=== PATIENT | male | born 1940 | race Caucasian/White ===

== ENCOUNTER 2024-05-16 20:13 | Inpatient (IN) | payer OTHER, BC ==
[2024-05-16] MEDS ORDERED: ACETAMINOPHEN INJECTION 100 ML IVPB ONE (21:29)
[2024-05-16] MEDS: ACETAMINOPHEN 1000 MG/100 ML BAG IVPB ONE (21:36)
[2024-05-16] MEDS: SODIUM CHLORIDE 0.9% 500 ML INFUS.BAG IV ONE ×2 (21:36→22:47)
[2024-05-16 21:38] LABS: BASO % 0.7 % (0-2.0); HEMATOCRIT 45.8 % (35.4-49); HEMOGLOBIN 15.3 GM/dL (11.7-16.9); LYMPH % 6.1 % (8-40); MCH 29.4 pg (25.7-33.7); MCHC 33.4 g/dl (32.0-35.9); MEAN PLT VOLUME 8.7 fl (7.5-11.1); NEUT % 86.2 % (42.8-82.8); PLATELET COUNT 214 10^3/uL (134-434); RBC 5.21 M/mm3 (4.00-5.60); RDW 14.8 % (11.9-15.9); WHITE BLOOD COUNT 4.7 K/mm3 (4.0-10.0)
[2024-05-16 21:47] LABS: INR 1.08 (0.83-1.09); PROTHROMBIN TIME (PATIENT) 12.4 SEC (9.7-13.0)
[2024-05-16 21:56] LABS: CHLORIDE 98 mmol/L (98-107); POTASSIUM 4.1 mmol/L (3.5-5.1); SODIUM 132 mmol/L (136-145)
[2024-05-16 21:58] LABS: ALBUMIN 3.2 g/dl (3.4-5.0); ANION GAP 9 mmol/L (4-13); BLOOD UREA NITROGEN 23.4 mg/dL (7-18); CALCIUM 9.3 mg/dL (8.5-10.1); CO2 25 mmol/L (21-32); GLUCOSE,RANDOM 245 mg/dL (74-106); MAGNESIUM 1.8 mg/dL (1.8-2.4)
[2024-05-16 22:01] LABS: PHOSPHOROUS 2.6 mg/dL (2.5-4.9)
[2024-05-16 22:02] LABS: CREATININE 1.1 mg/dL (0.55-1.3); SGOT/AST 67 U/L (15-37); SGPT/ALT 53 U/L (13-61)
[2024-05-16 22:03] LABS: BILIRUBIN,TOTAL 0.4 mg/dL (0.2-1)
[2024-05-16 22:04] LABS: ALK PHOS 98 U/L (45-117); LACTIC ACID 2.5 mmol/L (0.4-2.0); TOT PROT 6.4 g/dl (6.4-8.2)
[2024-05-17 01:21] LABS: EPI CELLS 12 /uL (0-25.1); HYALINE CASTS 2 /uL (0-3.1); PH,URINE 5.5 (5.0-8.0); URINE APPEARANCE CLEAR; URINE BACTERIA 7 /uL (0-1359); URINE BILIRUBIN NEGATIVE (NEGATIVE); URINE COLOR YELLOW; URINE GLUCOSE (UA) TRACE (NEGATIVE); URINE KETONE NEGATIVE (NEGATIVE); URINE LEUK ESTERASE NEGATIVE (NEGATIVE); URINE NITRITE NEGATIVE (NEGATIVE); URINE PROTEIN 1+ (NEGATIVE); URINE RBC 16 /uL (0-23.9); URINE WBC 23 /uL (0-25.8)
[2024-05-17 02:10] LABS: LACTIC ACID 2.2 mmol/L (0.4-2.0)
[2024-05-17] MEDS: PANTOPRAZOLE 40 MG TABLET PO SCH (03:42)
[2024-05-17] MEDS ORDERED: MAGNESIUM SULFATE IN WATER 2 GM/50 ML IVPB IVPB ONE (04:12)
[2024-05-17] MEDS: MAGNESIUM SULF 50% (8.12 MEQ/2 ML-1 GM VIAL) IVPB ONE (04:22)
[2024-05-17] MEDS: D5-1/2NS+10 MEQ KCL - 10 MEQ/1,000 ML INFUS.BAG IV SCH ×3 (04:22→15:41)
[2024-05-17] MEDS: ACETAMINOPHEN 1000 MG/100 ML BAG IVPB ONE (06:12)
[2024-05-17] MEDS ORDERED: amLODIPine BESYLATE 5 MG TABLET (FP) ONE (07:15)
[2024-05-17] MEDS: amLODIPine BESYLATE 5 MG TABLET (FP) PO SCH (07:20)
[2024-05-17 09:28] LABS: YEAST NONE SEEN (NEGATIVE)
[2024-05-17] MEDS ORDERED: INSULIN ASPART SLIDING SCALE (NOVOLOG) 1 VIAL SQ ONE ×2 (09:56→18:54)
[2024-05-17] MEDS ORDERED: LOSARTAN POTASSIUM 25 MG TABLET ONE (09:56)
[2024-05-17] MEDS ORDERED: TAMSULOSIN HCL 0.4 MG CAP ONE (09:56)
[2024-05-17] MEDS ORDERED: ENOXAPARIN NA (PORCINE) 40 MG/0.4 ML DISP.SYRIN SQ ONE (09:56)
[2024-05-17] MEDS: LOSARTAN POTASSIUM 25 MG TABLET PO SCH (10:15)
[2024-05-17] MEDS: CYANOCOBALAMIN 1,000 MCG TABLET (FP) PO SCH (10:15)
[2024-05-17] MEDS: CALCIUM CARBONATE 650 MG TABLET PO SCH (10:15)
[2024-05-17] MEDS: INSULIN ASPART SLIDING SCALE (NOVOLOG) 1 VIAL SQ SCH (10:15)
[2024-05-17] MEDS: ENOXAPARIN NA (PORCINE) 40 MG/0.4 ML DISP.SYRIN SQ SCH (10:15)
[2024-05-17] MEDS: TAMSULOSIN HCL 0.4 MG CAP PO SCH (10:15)
[2024-05-17 19:20] VITALS: BMI 23.6
[2024-05-17] MEDS: ACETAMINOPHEN 325 MG TABLET (FP) PO PRN (21:07)
[2024-05-17] MEDS: ROSUVASTATIN CA 10 MG TABLET PO SCH (21:07)
[2024-05-17] MEDS: DUTASTERIDE 0.5 MG CAP (FP) PO SCH (21:07)
[2024-05-18 08:50] LABS: BASO % 0.6 % (0-2.0); EOS % 0.7 % (0-4.5); HEMATOCRIT 40.2 % (35.4-49); HEMOGLOBIN 13.8 GM/dL (11.7-16.9); LYMPH % 11.1 % (8-40); MCH 29.5 pg (25.7-33.7); MCHC 34.2 g/dl (32.0-35.9); MEAN CELL VOLUME 86.1 fl (80-96); MEAN PLT VOLUME 8.7 fl (7.5-11.1); MONO % 8.8 % (3.8-10.2); NEUT % 78.8 % (42.8-82.8); PLATELET COUNT 189 10^3/uL (134-434); RBC 4.67 M/mm3 (4.00-5.60); RDW 14.6 % (11.9-15.9); WHITE BLOOD COUNT 3.2 K/mm3 (4.0-10.0)
[2024-05-18 09:09] LABS: POTASSIUM 3.2 mmol/L (3.5-5.1)
[2024-05-18 09:22] LABS: CALCIUM 8.1 mg/dL (8.5-10.1)
[2024-05-18 09:23] LABS: ALBUMIN 2.8 g/dl (3.4-5.0); BLOOD UREA NITROGEN 15.3 mg/dL (7-18); MAGNESIUM 2.1 mg/dL (1.8-2.4)
[2024-05-18 09:26] LABS: CREATININE 0.9 mg/dL (0.55-1.3); PHOSPHOROUS 1.4 mg/dL (2.5-4.9)
[2024-05-18 09:27] LABS: TOT PROT 5.5 g/dl (6.4-8.2)
[2024-05-18 09:28] LABS: BILIRUBIN,TOTAL 0.4 mg/dL (0.2-1)
[2024-05-18] MEDS ORDERED: INSULIN ASPART SLIDING SCALE (NOVOLOG) 1 VIAL SQ ONE (12:03)
[2024-05-18] MEDS: KCL 10 MEQ IVPB 10 MEQ/100 ML INFUS.BAG IVPB SCH (12:49)
[2024-05-18] MEDS: POTASSIUM PHOSPHATE 30 MM in DEXTROSE 5%-WATER - 500 ML IVPB ONE (16:33)
[2024-05-19] MEDS: D5-1/2NS+10 MEQ KCL - 10 MEQ/1,000 ML INFUS.BAG IV SCH (08:55)
[2024-05-19 09:13] LABS: BASO % 0.7 % (0-2.0); EOS % 1.5 % (0-4.5); HEMOGLOBIN 14.1 GM/dL (11.7-16.9); LYMPH % 16.2 % (8-40); MCH 29.3 pg (25.7-33.7); MCHC 33.7 g/dl (32.0-35.9); MEAN CELL VOLUME 87.2 fl (80-96); MEAN PLT VOLUME 8.8 fl (7.5-11.1); MONO % 14.5 % (3.8-10.2); NEUT % 67.1 % (42.8-82.8); PLATELET COUNT 202 10^3/uL (134-434); RBC 4.82 M/mm3 (4.00-5.60); RDW 14.8 % (11.9-15.9); WHITE BLOOD COUNT 4.3 K/mm3 (4.0-10.0)
[2024-05-19 09:22] LABS: POTASSIUM 3.9 mmol/L (3.5-5.1)
[2024-05-19 09:32] LABS: BLOOD UREA NITROGEN 9.8 mg/dL (7-18); CALCIUM 8.1 mg/dL (8.5-10.1)
[2024-05-19 09:35] LABS: CREATININE 0.8 mg/dL (0.55-1.3); PHOSPHOROUS 2.2 mg/dL (2.5-4.9)
[2024-05-19] MEDS ORDERED: INSULIN ASPART SLIDING SCALE (NOVOLOG) 1 VIAL SQ ONE ×2 (12:35→18:47)
[2024-05-19] MEDS: POLYETHYLENE GLYCOL (HEALTHYLAX) 3350 17 GM PACKET PO SCH (12:48)
[2024-05-19] MEDS: DOCUSATE SODIUM 100 MG CAPSULE (FP) PO SCH (13:46)
[2024-05-20 08:44] LABS: HEMATOCRIT 42.8 % (35.4-49); HEMOGLOBIN 14.4 GM/dL (11.7-16.9); MCH 29.2 pg (25.7-33.7); MCHC 33.7 g/dl (32.0-35.9); MEAN CELL VOLUME 86.7 fl (80-96); MEAN PLT VOLUME 8.9 fl (7.5-11.1); PLATELET COUNT 257 10^3/uL (134-434); RBC 4.94 M/mm3 (4.00-5.60); RDW 15.1 % (11.9-15.9); WHITE BLOOD COUNT 5.3 K/mm3 (4.0-10.0)
[2024-05-20 08:51] LABS: POTASSIUM 3.6 mmol/L (3.5-5.1)
[2024-05-20 08:53] LABS: CALCIUM 8.5 mg/dL (8.5-10.1)
[2024-05-20 08:54] LABS: BLOOD UREA NITROGEN 8.6 mg/dL (7-18)
[2024-05-20 08:56] LABS: ALBUMIN 2.9 g/dl (3.4-5.0)
[2024-05-20 08:59] LABS: CREATININE 0.8 mg/dL (0.55-1.3)
[2024-05-20 09:01] LABS: BILIRUBIN,TOTAL 0.5 mg/dL (0.2-1); TOT PROT 5.9 g/dl (6.4-8.2)
[2024-05-20] MEDS ORDERED: INSULIN ASPART SLIDING SCALE (NOVOLOG) 1 VIAL SQ ONE (11:20)
[2024-05-21 08:03] LABS: POTASSIUM 4.4 mmol/L (3.5-5.1)
[2024-05-21 08:07] LABS: BASO % 0.7 % (0-2.0); EOS % 1.7 % (0-4.5); HEMATOCRIT 42.4 % (35.4-49); HEMOGLOBIN 14.3 GM/dL (11.7-16.9); LYMPH % 16.8 % (8-40); MCH 29.3 pg (25.7-33.7); MCHC 33.7 g/dl (32.0-35.9); MEAN CELL VOLUME 86.8 fl (80-96); MEAN PLT VOLUME 8.5 fl (7.5-11.1); NEUT % 66.8 % (42.8-82.8); PLATELET COUNT 311 10^3/uL (134-434); RBC 4.89 M/mm3 (4.00-5.60); RDW 14.6 % (11.9-15.9); WHITE BLOOD COUNT 6.2 K/mm3 (4.0-10.0)
[2024-05-21 08:10] LABS: CALCIUM 8.6 mg/dL (8.5-10.1)
[2024-05-21 08:11] LABS: BLOOD UREA NITROGEN 8.8 mg/dL (7-18)
[2024-05-21 08:14] LABS: CREATININE 0.9 mg/dL (0.55-1.3)
[2024-05-21 08:15] LABS: TOT PROT 5.9 g/dl (6.4-8.2)
[2024-05-21 08:16] LABS: BILIRUBIN,TOTAL 0.6 mg/dL (0.2-1)
[2024-05-21] MEDS: LOSARTAN POTASSIUM 50 MG TABLET PO SCH (09:25)
[2024-05-21] MEDS ORDERED: POLYETHYLENE GLYCOL (HEALTHYLAX) 3350 17 GM PACKET PO SCH (13:00)
[2024-05-21] MEDS: POLYETHYLENE GLYCOL (HEALTHYLAX) 3350 17 GM PACKET PO ONE (13:44)
[2024-05-21 15:29] VITALS: BP 139/89; RESP 18; TEMP 99
[2024-05-21 15:55] VITALS: PULSE 100
== END 2024-05-21 16:15 | DRG 641 ==
LOC: JER 20:13 → JERBED 05-17 00:37 → OBSVTOIN 05-17 16:07 → J8W 05-17 18:16
PROVIDERS: ADMIT Internal Medicine; ATTEND Internal Medicine
DX: E86.0 Dehydration (principal); I10 Essential (primary) hypertension; E11.42 Type 2 diabetes mellitus with diabetic polyneuropathy; E78.5 Hyperlipidemia, unspecified; E53.8 Deficiency of other specified B group vitamins; E87.1 Hypo-osmolality and hyponatremia; R50.9 Fever, unspecified; M62.81 Muscle weakness (generalized); E88.09 Other disorders of plasma-protein metabolism, not elsewhere classified; E87.20 Acidosis, unspecified; N40.0 Benign prostatic hyperplasia without lower urinary tract symptoms; R79.89 Other specified abnormal findings of blood chemistry
CPT/HCPCS: 0241U-QW; 36415; 71045-TC-FY; 71250-TC; 74176-TC; 80048; 80053; 81003; 82550; 82553; 82962; 82977; 83605; 83615; 83735; 84100; 84443; 84484; 85025; 85610; 85651; 85730; 86140; 86308; 87040; 87086; 87633; 87635; 93005; 93010; 97116-GP; 97161-GP; 99285-25; G0378; J0131